=== PATIENT | male | born 1960 | race African-American/Black ===

== ENCOUNTER → 2016-02-24 | Outpatient (REF) | LOC: LAB 14:27 | PROVIDERS: ATTEND Family Medicine | DX: E11.65 Type 2 diabetes mellitus with hyperglycemia (principal) | CPT/HCPCS: 82043 ==

== ENCOUNTER → 2016-04-30 | Outpatient (REF) | LOC: CLAB.BLUES 11:38 | PROVIDERS: ATTEND Family Medicine | DX: Z53.9 Procedure and treatment not carried out, unspecified reason (principal) ==

== ENCOUNTER → 2016-05-04 | Outpatient (REF) ==
[2016-05-04 14:13] LABS: ALBUMIN 3.9 g/dL (3.4-5.0); ANION GAP 14.2 MEQ/L (3-15)
== END ==
LOC: CLAB.BLUES 13:09
PROVIDERS: ATTEND Family Medicine
DX: E11.9 Type 2 diabetes mellitus without complications (principal)
CPT/HCPCS: 80053; 80061; 82043; 83036

== ENCOUNTER → 2016-06-08 | Outpatient (REF) ==
[2016-06-08 12:38] LABS: ANION GAP 16.7 MEQ/L (3-15)
== END ==
LOC: CLAB.BLUES 12:23
PROVIDERS: ATTEND Family Medicine
DX: I10 Essential (primary) hypertension (principal)
CPT/HCPCS: 80048

== ENCOUNTER → 2016-06-22 | Outpatient (REF) | LOC: CLAB.BLUES 13:42 | PROVIDERS: ATTEND Family Medicine | DX: I10 Essential (primary) hypertension (principal); E11.21 Type 2 diabetes mellitus with diabetic nephropathy | CPT/HCPCS: 80048; 83036; 85652; 86140; 86431 ==

== ENCOUNTER → 2016-07-02 | Outpatient (CLI) | payer OTHER ==
--- NOTE | 2016-07-02 18:00 | Diagnostic Imaging Report ---
INDICATION: Swelling. Attention to MCP joint. FINDINGS: Two views. There is mild narrowing of the interphalangeal joints throughout with mild sclerosis. MP joints are relatively well preserved with minimal narrowing. No evidence of periarticular erosions. Articulating surfaces are smooth. There does appear to be considerable soft tissue swelling throughout overlying the metacarpophalangeal joints. The first metacarpophalangeal joint does show moderate arthritic change with narrowing of the joint space and some sclerosis of the articulating surface. The metacarpal carpal joints appear normal. Intercarpal joints appear normal. IMPRESSION: 1. Marked soft tissue swelling over the MCP joint. 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 2. 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 3. No evidence of significant arthritic change along the CHCF joint or the intercarpal joints. Dictated by: Dictated on workstation # [id number]
== END ==
LOC: RAD 10:59
PROVIDERS: ATTEND Family Medicine
DX: M25.441 Effusion, right hand (principal)
CPT/HCPCS: 73120